=== PATIENT | female | born 1995 | race Caucasian/White ===

== ENCOUNTER 2017-04-19 03:42 | Emergency (ER) | payer OTHER ==
[~2017-04-19] VITALS: Ht 157.5 cm; Wt 74.7 kg
[2017-04-19 03:42] VITALS: BP 114/74
[~2017-04-19 03:42] MED LIST: BIRTH CONTROL
== END 2017-04-19 05:19 | disposition home or self-care (01) ==
LOC: ED 05:13
DX: L50.9 Urticaria, unspecified (principal)
CPT/HCPCS: 99283